=== PATIENT | male | born 1980 | race Caucasian/White ===

== ENCOUNTER 2016-11-04 22:15 | Emergency (ER) | payer OTHER ==
[2016-11-04 22:28] VITALS: RESP 16; TEMP 98.1
[2016-11-04] MEDS ORDERED: IPRATROPIUM/ALBUTEROL 3 ML DEYVIAL IH ONE (22:48)
--- NOTE | 2016-11-04 22:53 | EDPHY ---
H & P Stated Complaint: dry cough, irregular HR, SOB; started 10/29 after marathon Time Seen by Provider: 11/04/16 22:34 HPI/ROS: HPI The patient presents with dry cough which has been present for the last 1 week which has been intermittent though worse at night making it difficult for him to sleep. In general he says that he feels "winded" and more tired than usual. He did run a half marathon before his symptoms started. He has been able to exert himself without much difficulty, for example able to go [employer] over the last few days. After his symptoms started, he went on a trip to [facility] and has just returned today. He says when he pays attention, he can feel his heart rate going faster and slower, he denies any mami palpitations. He denies any leg swelling or chest pain. He has no personal or family history of DVT PE. REVIEW OF SYSTEMS Constitutional: No fever, no chills. Eyes: No discharge. ENT: No sore throat. Cardiovascular: No chest pain, no palpitations. Respiratory: See HPI Gastrointestinal: No abdominal pain, no vomiting. Genitourinary: No hematuria. Musculoskeletal: No back pain. Skin: No rashes. Neurological: No headache. PMHx: Healthy Soc Hx: Occasional tobacco use, works as a teacher FHx: No history of CAD PHYSICAL General Appearance: Alert, no distress Eyes: Pupils equal and round no pallor or injection ENT, Mouth: Mucous membranes moist Respiratory: There are no retractions, lungs are clear to auscultation Cardiovascular: Regular rate and rhythm Gastrointestinal: Abdomen is soft and non-tender, no masses, bowel sounds normal Neurological: A&O, moves all extremities Skin: Warm and dry, no rashes Musculoskeletal: Neck is supple non tender Extremities: symmetrical, full range of motion Psychiatric: Patient is oriented X 3, there is no agitation Source: Patient Exam Limitations: No limitations - Personal History Current Tetanus/Diphtheria Vaccine: Yes Current Tetanus Diphtheria and Acellular Pertussis (TDAP): Yes - Medical/Surgical History Hx Asthma: No Hx Chronic Respiratory Disease: No Hx Diabetes: No Hx Cardiac Disease: No Hx Renal Disease: No Hx Cirrhosis: No Hx Alcoholism: No Hx HIV/AIDS: No Hx Splenectomy or Spleen Trauma: No Other PMH: denies - Social History Smoking Status: Former smoker Constitutional: Initial Vital Signs Temperature (C) 36.7 C 11/04/16 22:23 Heart Rate 75 11/04/16 22:23 Respiratory Rate 16 11/04/16 22:23 Blood Pressure 119/71 11/04/16 22:23 O2 Sat (%) 93 11/04/16 22:23 O2 Delivery Mode Room Air Allergies/Adverse Reactions: No Known Allergies Allergy (Unverified 11/04/16 22:28) Home Medications: Medication Instructions Recorded Famciclovir 11/04/16 Medical Decision Making - Diagnostics EKG Interpretation: EKG: Complete interpretation has been separately recorded in the [facility] archive. Summary impression: Wandering pacemaker Imaging Results: Imaging Impressions Chest X-Ray 11/04/16 22:48 Impression: No acute pulmonary disease. ED Course/Re-evaluation: In the emergency room, patient was placed on the site monitor. EKG revealed arrhythmia consistent with wandering pacemaker verses multifocal atrial tachycardia. Chest x-ray was unremarkable. He felt better after a DuoNeb. Because of his abnormal heart rhythm, basic labs including electrolytes, D-dimer , troponin were all checked and were unremarkable. The cause of his arrhythmia is not clear, though I doubt any dangerous cause. I have explained this to him. I think he likely is suffering from an upper respiratory tract infection is the cause of his cough. The time course of his a arrhythmia is less clear. I have advised him that I would like him to follow up with Cardiology sometime this week and he is in agreement with this plan. Differential Diagnosis: This is a healthy 36-year-old man with 1 week of dry cough associated with some shortness of breath and palpitations. Differential diagnosis includes bronchitis, pneumonia, postnasal drip, pericarditis, arrhythmia. - Data Points Laboratory Results: Laboratory Results 11/04/16 23:22 11/04/16 23:22 11/04/16 11/04/16 11/04/16 23:22 23:22 23:22 WBC 7.18 10^3/uL 10^3/uL (3.80-9.50) RBC 4.90 10^6/uL 10^6/uL (4.40-6.38) Hgb 15.1 g/dL g/dL (13.7-17.5) Hct 43.9 % % (40.0-51.0) MCV 89.6 fL fL (81.5-99.8) MCH 30.8 pg pg (27.9-34.1) MCHC 34.4 g/dL g/dL (32.4-36.7) RDW 12.0 % % (11.5-15.2) Plt Count 184 10^3/uL 10^3/uL (150-400) MPV 9.5 fL fL (8.7-11.7) Neut % (Auto) 53.3 % % (39.3-74.2) Lymph % (Auto) 34.5 % % (15.0-45.0) [place] % (Auto) 8.4 % % (4.5-13.0) Eos % (Auto) 2.9 % % (0.6-7.6) Baso % (Auto) 0.6 % % (0.3-1.7) Nucleat RBC Rel Count 0.0 % % (0.0-0.2) Absolute Neuts (auto) 3.83 10^3/uL 10^3/uL (1.70-6.50) Absolute Lymphs (auto) 2.48 10^3/uL 10^3/uL (1.00-3.00) Absolute Monos (auto) 0.60 10^3/uL 10^3/uL (0.30-0.80) Absolute Eos (auto) 0.21 10^3/uL 10^3/uL (0.03-0.40) Absolute Basos (auto) 0.04 10^3/uL 10^3/uL (0.02-0.10) Absolute Nucleated RBC 0.00 10^3/uL 10^3/uL (0-0.01) Immature Gran % 0.3 % % (0.0-1.1) Immature Gran # 0.02 10^3/uL 10^3/uL (0.00-0.10) D-Dimer < 0.27 ug/mLFEU ug/mLFEU (0.00-0.50) Sodium 137 mEq/L mEq/L (134-144) Potassium 4.2 mEq/L mEq/L (3.5-5.2) Chloride 107 mEq/L mEq/L (97-110) Carbon Dioxide 26 mEq/l mEq/l (22-31) Anion Gap 4 mEq/L L mEq/L (8-16) BUN 19 mg/dL mg/dL (7-23) Creatinine 0.8 mg/dL mg/dL (0.7-1.3) Estimated GFR > 60 Glucose 90 mg/dL mg/dL (70-100) Calcium 8.8 mg/dL mg/dL (8.5-10.4) Phosphorus 3.3 mg/dL mg/dL (2.5-4.5) Magnesium 2.1 mg/dL mg/dL (1.6-2.3) Total Bilirubin 0.4 mg/dL mg/dL (0.1-1.4) AST 30 IU/L IU/L (17-59) ALT 42 IU/L IU/L (21-72) Alkaline Phosphatase 54 IU/L IU/L (38-126) Troponin I < 0.012 ng/mL ng/mL (0-0.034) Total Protein 6.8 g/dL g/dL (6.3-8.2) Albumin 3.8 g/dL g/dL (3.5-5.0) Medications Given: Discontinued Medications Albuterol/Ipratropium (Duoneb) 3 ml IH EDNOW ONE Stop: 11/04/16 22:49 Last Admin: 11/04/16 23:02 Dose: 3 ml Departure - Departure Disposition: Home, Routine, Self-Care Clinical Impression: Cough Arrhythmia Qualifiers: Arrhythmia type: other cardiac arrhythmia Qualified Code(s): I49.8 - Other specified cardiac arrhythmias Condition: Good Instructions: Atrial Tachycardia (ED) Additional Instructions: Please return to the emergency room if your worse in any way. Otherwise I have given you the follow-up information for Cardiology. Please call to make an appointment within the next few days. Referrals: Gt Reid MD [Medical Doctor] - As per Instructions
--- NOTE | 2016-11-04 23:01 | CPEKG ---
Heart Rate: 87 RR Interval: 690 P-R Interval: 140 QRSD Interval: 92 QT Interval: 384 QTC Interval: 462 P Benton: 0 QRS [place]enton: 34 T Wave [place]: 2 EKG Severity - ABNORMAL ECG - EKG Impression: WANDERING PACEMAKER EKG Impression: PAIRED VENTRICULAR PREMATURE COMPLEXES Electronically Signed By: Aileen Boyle 05-Nov-2016 07:09:00
[2016-11-04 23:31] LABS: % IMMATURE GRANULYOCYTES 0.3 % (0.0-1.1); ABSOLUTE IMMATURE GRANULOCYTES 0.02 10^3/uL (0.00-0.10); ADD DIFF? NO; ADD MORPH? NO; ADD SCAN? NO; ATYPICAL LYMPHOCYTE FLAG 0 (0-99); FRAGMENT RBC FLAG 0 (0-99); HEMATOCRIT 43.9 % (40.0-51.0); HEMOGLOBIN 15.1 g/dL (13.7-17.5); LEFT SHIFT FLG 0 (0-99); LIPEMIA HEMOLYSIS FLAG 90 (0-99); MEAN CELL HEMOGLOBIN 30.8 pg (27.9-34.1); MEAN CELL HEMOGLOBIN CONCENTR. 34.4 g/dL (32.4-36.7); MEAN CELL VOLUME 89.6 fL (81.5-99.8); MEAN PLATELET VOLUME 9.5 fL (8.7-11.7); PLATELET CLUMPS FLAG 0 (0-99); PLATELET COUNT 184 10^3/uL (150-400)
[2016-11-05 00:02] LABS: TROPONIN I < 0.012 ng/mL (0-0.034)
[2016-11-05 00:12] LABS: ALANINE AMINOTRANSFERASE 42 IU/L (21-72); ALBUMIN 3.8 g/dL (3.5-5.0); ALKALINE PHOSPHATASE 54 IU/L (38-126); ANION GAP 4 mEq/L (8-16); ASPARTATE AMINOTRANSFERASE 30 IU/L (17-59); BILIRUBIN,TOTAL 0.4 mg/dL (0.1-1.4); CALCIUM 8.8 mg/dL (8.5-10.4); CARBON DIOXIDE 26 mEq/l (22-31); CHLORIDE 107 mEq/L (97-110); CREATININE 0.8 mg/dL (0.7-1.3); GLOMERULAR FILTRATION RATE > 60; GLUCOSE 90 mg/dL (70-100); MAGNESIUM 2.1 mg/dL (1.6-2.3); POTASSIUM 4.2 mEq/L (3.5-5.2); SODIUM 137 mEq/L (134-144); TOTAL PROTEIN 6.8 g/dL (6.3-8.2)
[2016-11-05] MEDS ORDERED: ALBUTEROL INH PREPACK MDI TAKEHOME ONE (00:30)
[2016-11-05 00:55] VITALS: BP 135/81; PULSE 71; O2SAT 97
== END 2016-11-05 00:55 | disposition home or self-care (01) ==
DX: R05 Cough (principal); I49.8 Other specified cardiac arrhythmias; Z87.891 Personal history of nicotine dependence

== ENCOUNTER 2018-09-11 09:17 | Emergency (ER) | payer OTHER ==
--- NOTE | 2018-09-11 09:27 | EDPHY ---
General Time Seen by Provider: 09/11/18 09:26 Narrative: CLINICAL IMPRESSION: Right flank and right lower quadrant pain right UVJ stone ASSESSMENT/PLAN: Patient is a 38-year-old male with no significant medical history who presents to the emergency department with right flank and right lower quadrant pain. Patient is afebrile, nontoxic appearing however uncomfortable. His abdomen was soft with no tenderness to palpation, no peritoneal signs and no evidence of a surgical abdomen; right CVA tenderness. CBC revealed no evidence of leukocytosis , vital signs were reviewed and there was no evidence of sepsis or serious bacterial illness. BMP revealed no significant metabolic abnormality or BILL. UA with 3+ blood and 50-182 RBCs, urine sent for culture. CT abdomen and pelvis w/ out revealed 5 mm right UVJ stone with mild hydronephrosis. History and physical examination is consistent with right UVJ stone with mild hydronephrosis, no evidence of infected stone. Patient was given 1 L of IV fluids, Flomax and a single dose of Toradol with improvement of symptoms in the emergency department. At this time I have considered other etiologies of his pain to include appendicitis, cholecystitis, pancreatitis, ACS, perforated viscus, diverticulitis, hernia, AAA, mesenteric ischemia, herpes zoster or additional emergent intra-abdominal process however low clinical suspicion. On repeat examination and prior to discharge the patient reports that he is feeling better, his abdomen remained soft and nontender without evidence of a surgical abdomen. His blood pressure was noted to be elevated on arrival, this normalized while in the emergency department I suspect is secondary to pain. The patient is well established with his urologistDr. Green and will call to schedule an appointment for repeat examination. Conservative return precautions discussed- patient will return for development of fever, persistent nausea or vomiting, signs of dehydration, chest pain, shortness of breath, abdominal pain, worsening or uncontrolled flank pain, urinary retention, dysuria , hematuria or for any other concerning symptom. The patient verbalizes understanding and he is in agreement with this plan. DIFFERENTIAL DX: Abdominal pain including but not limited to appendicitis, cholecystitis, gastritis and urinary tract infection. ED COURSE: 1015: Discussed case with Dr. Odell. 1049: Discussed with radiologist Dr. Rico, patient with a 5 mm stone in the right UVJ with mild hydronephrosis. CHIEF COMPLAINT: Right flank pain, right lower quadrant pain HPI: Patient is a 38-year-old male with a history of HSV who presents to the emergency department with right flank and right lower quadrant pain. Patient reports that he went to bed last night feeling fine, he woke up this morning at 4:00 a.m. with some generalized discomfort in his penis, this lasted a very brief period and ultimately he has been experiencing right lower quadrant and right flank pain since. The pain is continuous from the right flank into the right lower quadrant, he describes it as an ache at its baseline however sharp when it is most intense. He does report similar episodes, possibly 2 in the past that lasted a very brief period of time however resolved on their own over the last 2 years. 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 He denies any fever, nausea or vomiting. His appetite has been normal today. He had a normal bowel movement this morning. He denies any dysuria, hematuria or increased frequency. He denies any testicular pain or swelling. No history of abdominal surgeries. He denies any penile discharge or concern for STI. PMH: HSV Pertinent Past Surgical History: Denies Family History: Noncontributory Social History: Former smoker, denies illicit drug use REVIEW OF SYSTEMS: All other systems negative Constitutional: No fever, no chills, appetite change. Eyes: No discharge, vision change ENT: No sore throat, congestion, ear pain. Cardiovascular: No chest pain, no palpitations. Respiratory: No cough, no shortness of breath. Gastrointestinal: Abdominal pain. No vomiting or diarrhea. Genitourinary: Right flank pain. No hematuria, dysuria, flank pain, testicular pain. Musculoskeletal: No back pain, joint swelling, joint pain, myalgias. Skin: No rashes, color change. Neurological: No headache, dizziness, weakness. PHYSICAL EXAM: General Appearance: Well-developed, very uncomfortable appearing however not toxic-appearing. HENT: Normocephalic, atraumatic. Bilateral external ears are normal. Bilateral tympanic membranes are normal with pearly villalta reflex. Nares are clear, mucosa is pink. Oropharynx is clear, uvula is midline. There is no tonsillar enlargement or exudate. The dentition is normal.] Eyes: PERRLA, no acute vision change, nystagmus, swelling, discharge, pain or photosensitivity. Conjunctiva pink, no pallor or injection Neck: Supple, nontender, no lymphadenopathy, no midline pain, FROM, no meningismus. Respiratory: There are no retractions, lungs are clear to auscultation. Cardiac: Regular rate and rhythm, no murmurs or gallops. Gastrointestinal: Patient's abdomen is soft, nondistended. He has very mild tenderness to palpation in the right lower and mid quadrant with no rigidity, guarding or focal peritoneal signs. Bowel sounds are present. No abdominal and incisions, no masses or hernias appreciated. Right CVA tenderness. Neurological: Alert and oriented x 3, CN 2-12 grossly intact, normal gait no ataxia, DTR's intact, normal sensation and strength Skin: Warm, dry, no rashes, no nodules on palpation. Musculoskeletal: Extremities are symmetrical, full range of motion, no tenderness, deformity, swelling, or erythema. Psychiatric: Patient is oriented X 3, there is no agitation. MEDICAL DECISION MAKING: Patient was seen independently. Secondary supervising physician at time of evaluation was Dr. Odell. Diagnosis: Right UVJ stone with mild hydronephrosis. New, requires workup Summary: See Assessment and Plan for summary of ED visit Clinical lab tests: ordered / reviewed. Independent visualization of images, tracing, or specimens: Yes / No. Decision to obtain medical records or history from someone other than the patient: No Review / Summarize previous medical records: Yes Discussed patient with another provider: Yes, Dr. Odell Patient Progress: Stable, discharge. - Diagnostics Imaging Results: Imaging Impressions Abdomen/Pelvis CT 09/11/18 09:38 Impression: 1. Obstructing 5 mm right UVJ calculus with mild hydroureteronephrosis. 2. 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 Findings and recommendations discussed with IRIS Green at 1049 hour, 09/11. - History Smoking Status: Former smoker - Objective Vital Signs: Initial Vital Signs Temperature (C) 36.5 C 09/11/18 09:19 Heart Rate 83 09/11/18 09:19 Respiratory Rate 18 09/11/18 09:19 Blood Pressure 151/111 H 09/11/18 09:19 O2 Sat (%) 98 09/11/18 09:19 O2 Delivery Mode Room Air O2 (L/minute) 2 Allergies/Adverse Reactions: No Known Allergies Allergy (Unverified 11/04/16 22:28) Home Medications: Medication Instructions Recorded Famciclovir 11/04/16 Hydrocodone/APAP 5/325 [Gratis 1 - 2 tab PO Q4H PRN #10 tab 09/11/18 5/325 (*)] Tamsulosin HCl [Flomax 0.4 MG (*)] 0.4 mg PO DAILY #10 cap 09/11/18 Laboratory Results: Laboratory Results 09/11/18 09:45 09/11/18 09:45 09/11/18 09/11/18 09/11/18 09:58 09:45 09:45 WBC 7.33 10^3/uL 10^3/uL (3.80-9.50) RBC 5.06 10^6/uL 10^6/uL (4.40-6.38) Hgb 15.8 g/dL g/dL (13.7-17.5) Hct 46.9 % % (40.0-51.0) MCV 92.7 fL fL (81.5-99.8) MCH 31.2 pg pg (27.9-34.1) MCHC 33.7 g/dL g/dL (32.4-36.7) RDW 11.8 % % (11.5-15.2) Plt Count 195 10^3/uL 10^3/uL (150-400) MPV 9.6 fL fL (8.7-11.7) Neut % (Auto) 78.8 % H % (39.3-74.2) Lymph % (Auto) 14.1 % L % (15.0-45.0) [place] % (Auto) 5.3 % % (4.5-13.0) Eos % (Auto) 1.0 % % (0.6-7.6) Baso % (Auto) 0.5 % % (0.3-1.7) Nucleat RBC Rel Count 0.0 % % (0.0-0.2) Absolute Neuts (auto) 5.78 10^3/uL 10^3/uL (1.70-6.50) Absolute Lymphs (auto) 1.03 10^3/uL 10^3/uL (1.00-3.00) Absolute Monos (auto) 0.39 10^3/uL 10^3/uL (0.30-0.80) Absolute Eos (auto) 0.07 10^3/uL 10^3/uL (0.03-0.40) Absolute Basos (auto) 0.04 10^3/uL 10^3/uL (0.02-0.10) Absolute Nucleated RBC 0.00 10^3/uL 10^3/uL (0-0.01) Immature Gran % 0.3 % % (0.0-1.1) Immature Gran # 0.02 10^3/uL 10^3/uL (0.00-0.10) Sodium 139 mEq/L mEq/L (135-145) Potassium 3.8 mEq/L mEq/L (3.5-5.2) Chloride 99 mEq/L mEq/L (97-110) Carbon Dioxide 25 mEq/l mEq/l (22-31) Anion Gap 15 mEq/L H mEq/L (6-14) BUN 16 mg/dL mg/dL (7-23) Creatinine 0.8 mg/dL mg/dL (0.7-1.3) Estimated GFR > 60 Glucose 105 mg/dL H mg/dL (70-100) Calcium 9.5 mg/dL mg/dL (8.5-10.4) Total Bilirubin 0.5 mg/dL mg/dL (0.1-1.4) Conjugated Bilirubin 0.3 mg/dL mg/dL (0.0-0.5) Unconjugated Bilirubin 0.2 mg/dL mg/dL (0.0-1.1) AST 33 IU/L IU/L (17-59) ALT 56 IU/L IU/L (21-72) Alkaline Phosphatase 64 IU/L IU/L (38-126) Total Protein 8.1 g/dL g/dL (6.3-8.2) Albumin 5.0 g/dL g/dL (3.5-5.0) Urine Color YELLOW Urine Appearance CLEAR Urine pH 5.0 (5.0-7.5) Ur Specific [place] 1.018 (1.002-1.030) Urine Protein NEGATIVE (NEGATIVE) Urine Ketones NEGATIVE (NEGATIVE) Urine Blood 3+ H (NEGATIVE) Urine Nitrate NEGATIVE (NEGATIVE) Urine Bilirubin NEGATIVE (NEGATIVE) Urine Urobilinogen NEGATIVE EU EU (0.2-1.0) Ur Leukocyte Esterase NEGATIVE (NEGATIVE) Urine RBC 50-182 /hpf H /hpf (0-3) Urine WBC 1-3 /hpf /hpf (0-3) Ur Epithelial Cells NONE SEEN /lpf /lpf (NONE-1+) Urine Mucus TRACE /lpf /lpf (NONE-1+) Urine Glucose NEGATIVE (NEGATIVE) Medications Given: Discontinued Medications Hydromorphone HCl (Dilaudid) 0.5 mg IVP EDNOW ONE Stop: 09/11/18 09:40 Last Admin: 09/11/18 09:55 Dose: 0.5 mg Sodium Chloride (Ns) 1,000 mls @ 0 mls/hr IV ONCE ONE PRN Reason: Wide Open Stop: 09/11/18 09:40 Last Admin: 09/11/18 09:54 Dose: 1,000 mls Ketorolac Tromethamine (Toradol) 30 mg IVP EDNOW ONE Stop: 09/11/18 10:28 Last Admin: 09/11/18 10:29 Dose: 30 mg Tamsulosin HCl (Flomax) 0.4 mg PO EDNOW ONE Stop: 09/11/18 10:50 Last Admin: 09/11/18 11:21 Dose: 0.4 mg Departure - Departure Disposition: Home, Routine, Self-Care Clinical Impression: Ureteral stone with hydronephrosis Condition: Good Instructions: Hydrocodone/Acetaminophen (By mouth), Tamsulosin (By mouth), Ureteral Stones (ED) Additional Instructions: DISCHARGE INSTRUCTIONS FROM YOUR DOCTOR Thank you for visiting our emergency department today. Please keep in mind that discharge from the emergency department does not mean that there is nothing wrong - it simply means that we have not identified an emergency condition that requires further evaluation or treatment in the hospital. You should always plan to follow up with primary care for re-evaluation of your condition in the next 2-3 days. If you have been referred to a specialist, please call as soon as possible ( today or tomorrow) to schedule your follow up appointment at the appropriate time. Rest, push fluids (LOTS OF WATER), clear liquid diet then BRAT diet (bananas, rice, applesauce, toast) --if nauseated, slowly advance diet as tolerated. Avoid fatty, spicy, and milk containing foods until feeling better, until the nausea resolves. Urinate regularly. You should be hydrated enough that your urine is almost clear. Urinate after intercourse if sexually active. Follow your symptoms closely. Ibuprofen as prescribed as needed for pain. Take with food. Stop if this upsets your stomach. Do not exceed 2400 mg in 24 hours. Do not take for at least 8 hr as you received Toradol in the emergency department. Tylenol every 4-6 hours as directed as needed for less severe pain. Do not exceed 4000 mg in 24 hours. Gratis as prescribed as needed for severe pain. Caution - this is a narcotic. This medication contains tylenol (acetaminophen). Do not combine with any additional tylenol. Do not exceed 4000 mg of tylenol in 24 hours. This medication can cause dizziness and/or drowsiness. Do not combine with alcohol or other narcotics. Do not take if you will be driving or operating heavy machinery. Be careful as this medication can be addictive and can cause constipation. Some patients require a stool softener or increased water and dietary fiber while on this medication. Flomax nightly, this can cause low blood pressure so please be careful when going from a seated to standing position. Return immediately for any new symptoms ie: fever, chills, painful urination, inability to urinate, recurrent vomiting, concern for dehydration or worsening. Schedule a follow-up appointment with Dr. Green as listed to be seen in follow- up this week. Bring a copy of the test results with you to that appointment. Return for increased or unmanageable pain, inability to tolerate the medications , development of worsening back or flank pain, testicular or scrotal pain, redness or swelling, penile discharge, right lower abdominal pain, high fever, shaking chills, recurrent vomiting, vomiting blood, coffee grounds in the vomit , bloody stools or black tarry stools, burning or pain with urination, blood in the urine, inability to urinate, decreased urine output, evidence of dehydration , midline back pain, severe headache, neck pain or stiffness, dizziness, weakness, fainting, chest pain, shortness of breath, rapid or irregular heart beat, numbness, tingling, weakness in your arms or legs or for any other new, worsening or worrisome symptoms. People present with illnesses and injuries in different ways, and it is always possible that we have missed something. You may always return for re-evaluation if symptoms worsen or if they are not improving or if you develop new/different symptoms. Again, thank you for choosing our emergency department. We hope that you feel better. Referrals: James Clark MD [Medical Doctor] - As per Instructions (Please establish care with a primary care provider) Vasquez Green MD [Medical Doctor] - 2-3 days, call for appt. Prescriptions: Hydrocodone/APAP 5/325 [Gratis 5/325 (*)] 1 - 2 tab PO Q4H PRN #10 tab PRN Reason: Pain, Moderate Tamsulosin HCl [Flomax 0.4 MG (*)] 0.4 mg PO DAILY #10 cap
[2018-09-11] MEDS ORDERED: NS 1,000 ML IV ONE (09:39)
[2018-09-11] MEDS ORDERED: HYDROmorphONE/DILAUDID 2 MG/ML INJ IVP ONE (09:39)
[2018-09-11] MEDS ORDERED: HYDROmorphONE/DILAUDID 1 MG/ML INJ ONE (09:52)
[2018-09-11 10:01] LABS: PLATELET COUNT 195 10^3/uL (150-400)
[2018-09-11] MEDS ORDERED: KETOROLAC 30 MG/1 ML SDV IVP ONE (10:27)
[2018-09-11] MEDS ORDERED: TAMSULOSIN HCL 0.4 MG CAP PO ONE (10:49)
[2018-09-11 12:04] VITALS: BP 131/88
== END 2018-09-11 12:07 | disposition home or self-care (01) ==
DX: N13.2 Hydronephrosis with renal and ureteral calculous obstruction (principal); N13.0 Hydronephrosis with ureteropelvic junction obstruction
CPT/HCPCS: 96374; J1170; J1885